=== PATIENT | male | born 1940 | race Caucasian/White ===

== ENCOUNTER 2023-05-27 09:27 | Outpatient (AMB) | payer MEDICARE, SELFPAY ==
--- NOTE | 2023-05-27 10:54 | AM.OFFWIN_ITS ---
Intake Vital Signs 05/27/23 11:12 Height 5 ft 7 in Weight 189 lb BMI 29.6 BP 140/60 H Blood Pressure Location Lt brachial Position Sitting Pulse 70 Pulse Source Pulse Oximeter Temp 97.8 F Temp Source Oral Pulse Oximetry (%) 99 Oxygen Delivery Method Room Air Intake Visit Reasons: [employer]/rib pain from fall ([phone]) Intake Note: Pt is here today took a fall yesterday at home c/o Rt side of rib pain and Rt knee pain: denies hitting head Allergies lisinopril [LISINOPRIL] Allergy (Unknown, Unverified 01/02/20 15:27) UNKNOWN HPI [employer]/rib pain from fall ([phone]) HPI Details Patient is an 83-year-old male comes to the walk-in with a family member, complaining of pain to his right knee and his right chest wall after a mechanical fall yesterday. He reports that he did not hit his head, and has no head or neck pain, as well as no headache, vision changes, altered mental status, dizziness or vertigo or unsteadiness, loss of sensation, nausea vomiting, speech issues, or other associated concussion or head injury symptoms. He has pain to the right knee with range of motion and with walking but is able to bear weight with the right leg and denies weakness numbness or tingling, other significant associated symptoms in regards to the knee injury. He has mild chest wall discomfort on his right side, especially with twisting or deep respirations, but reports he is not short of breath, and has no significant cough, or other worrisome associated symptoms. Review of Systems Const All systems reviewed & are unremarkable except as noted in HPI and below Physical Exam Vital Signs: Last Vital Signs Temp 97.8 F 05/27/23 11:12 Pulse 70 05/27/23 11:12 BP 140/60 H 05/27/23 11:12 Pulse Ox 99 05/27/23 11:12 Oxygen Delivery Method Room Air 05/27/23 11:12 BMI result Body Mass Index 29.6 Const General: cooperative, healthy appearing, comfortable, no acute distress, alert, awake, Physically active and well groomed; No anxious, diaphoretic, ill appearing, intoxicated appearing, poor hygiene or tired appearing Nutritional Appearance: average body habitus Orientation/consciousness: oriented to person Limitations: no limitations Chest Chest palpation & inspection: tenderness (right lateral wall) Resp Effort & Inspection: normal respiratory effort, able to speak in complete sentences, no audible wheezes, no cough, no grunting, not labored, no nasal flaring, no retractions and symmetric chest movement Auscultation: clear to auscultation bilaterally, no crackles, no rales, no rhonchi, no wheezes, lung sounds not diminished and No rub present Cardio Palpation: normal PMI Rate: regular rate Rhythm: regular rhythm Heart sounds: S1 normal heart sound present and S2 normal heart sound present Skin Other: Good color, warm and dry Neuro General: oriented to person Extrem Right lower extremity: knee (tenderness diffusely) Details: abnormal to inspection, normal ROM, knee ligament exam normal and abrasion (superficial); no swelling, no ecchymosis, no crepitus, no deformity and no unusual warmth Psych Appearance: grossly normal Mental Status: mental status grossly normal Speech and movement: Normal speech and movement present Affect: normal affect Attitude: cooperative Thought process: Normal thought process present Insight: Good insight present (Psych) Judgement: Good judgement present (Psych) Results Reviewed Results Reviewed: Wet read of right knee and right ribs show no obvious osseous trauma on my and. Waiting for radiologist read Assessment & Plan Assessment & Plan (1) Contusion of knee, right: Code(s): S80.01XA - Contusion of right knee, initial encounter Qualifiers: Encounter type: initial encounter Qualified Code(s): S80.01XA - Contusion of right knee, initial encounter (2) Contusion of rib on right side: Code(s): S20.211A - Contusion of right front wall of thorax, initial encounter Qualifiers: Encounter type: initial encounter Qualified Code(s): S20.211A - Contusion of right front wall of thorax, initial encounter Plan Patient is a day out from a mechanical fall, with no apparent associated head injury or spine injury findings. He is able to bear weight on his leg and x-ray is unremarkable for acute injury per my wet read. His ribs also appear unremarkable, and his vitals are stable and he is not in respiratory distress. I think he should be okay with [id number] medication, along with close monitoring in case he starts to develop TBI symptoms. He was advised to follow up with PCP however, if he doesn't resolve in a week or so. Family member is with him, and we discussed this in detail. Knows to monitor and to follow up if symptoms persist or worsen, and to go to the emergency department with worrisome symptoms. Orders: Orders XR knee RT 4V 05/27/23 W19.XXXA - Unspecified fall, initial encounter XR ribs BI min 4V w CXR1V 05/27/23 W19.XXXA - Unspecified fall, initial encounter Coding Level of Care Code New Pt Level 4 (85400) Diagnoses Contusion of right knee, initial encounter S80.01XA Encounter type: initial encounter Contusion of rib on right side, initial encounter S20.211A Encounter type: initial encounter
[2023-05-27 11:12] VITALS: BP 140/60; PULSE 70; TEMP 36.6; O2SAT 99; BMI 29.6
== END 2023-05-27 13:08 | disposition home or self-care (01) ==
PROVIDERS: PCP Internal Medicine; Visit Provider Physician Assistant Medical
DX: S80.01XA Contusion of right knee, initial encounter (principal); S20.211A Contusion of right front wall of thorax, initial encounter
CPT/HCPCS: 99204

== ENCOUNTER 2023-05-27 12:20 | Outpatient (REF) | payer MEDICARE, SELFPAY ==
--- NOTE | ~2023-05-27 | XR_ITS ---
Examination: Right knee. Bilateral RIBS and chest x-ray. CLINICAL INDICATION: Fall. Pain. COMPARISON: None. TECHNIQUE: Right knee 4 views. Chest and bilateral RIBS 5 views. FINDINGS: Right knee: There is loss of tricompartment joint space without visible acute fracture, dislocation or subluxation seen. There is mild superior joint effusion. There is mild anterior superior patellar enthesophyte. No visible acute fracture, dislocation or lytic process seen. There are vascular calcifications present. CHEST: The lungs are well-expanded and clear of acute process. Heart size and pulmonary vascularity is normal. There are median sternotomy sutures and mediastinal jaci from previous intervention. No gross bony abnormality seen. Bilateral RIBS: Multiple views of bilateral ribs reveal no visible fracture or bony abnormality. The soft tissues are normal. XR/XR knee RT 4V IMPRESSION: 1. 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 No visible acute fracture or dislocation seen. 2. Unremarkable chest exam. 3. Unremarkable bilateral rib exam.
--- NOTE | ~2023-05-27 | XR_ITS ---
Examination: Right knee. Bilateral RIBS and chest x-ray. CLINICAL INDICATION: Fall. Pain. COMPARISON: None. TECHNIQUE: Right knee 4 views. Chest and bilateral RIBS 5 views. FINDINGS: Right knee: There is loss of tricompartment joint space without visible acute fracture, dislocation or subluxation seen. There is mild superior joint effusion. There is mild anterior superior patellar enthesophyte. No visible acute fracture, dislocation or lytic process seen. There are vascular calcifications present. CHEST: The lungs are well-expanded and clear of acute process. Heart size and pulmonary vascularity is normal. There are median sternotomy sutures and mediastinal jaci from previous intervention. No gross bony abnormality seen. Bilateral RIBS: Multiple views of bilateral ribs reveal no visible fracture or bony abnormality. The soft tissues are normal. XR/XR ribs BI min 4V w CXR1V IMPRESSION: 1. 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 No visible acute fracture or dislocation seen. 2. Unremarkable chest exam. 3. Unremarkable bilateral rib exam.
== END 2023-05-27 12:21 | disposition home or self-care (01) ==
LOC: HO.HMGCX 12:20
PROVIDERS: PCP Physician Assistant Medical; Visit Provider Physician Assistant Medical
DX: R52 Pain, unspecified (principal); Z91.81 History of falling
CPT/HCPCS: 71111; 73564